=== PATIENT | female | born 1965 | race Caucasian/White ===

== ENCOUNTER → 2017-03-22 | Outpatient (CLI) | payer BC, OTHER ==
[2014-09-29 17:04] VITALS: BP 137/78
--- NOTE | 2017-03-23 09:54 | RAD ---
DATE: 03/22/2017 EXAM: MAMMO EDMUNDO SCREENING BILATERAL HISTORY: Screening COMPARISON: None. This is a baseline exam FINDINGS: Breast Density: FATTY The Breast Parenchyma is primarily fatty replaced. Breast parenchyma level density A.. Left breast is unremarkable. There is a small well-defined nodule in the subareolar position of the right breast. Targeted ultrasound is advised. IMPRESSION: Well-defined nodule subareolar position right breast. Targeted ultrasound advised BI-RADS CATEGORY: 0 INCOMPLETE: NEED ADDITIONAL IMAGING EVAULATION AND/OR PRIOR MAMMOGRAMS FOR COMPARISON RECOMMENDED FOLLOW-UP: ADD ADDITIONAL IMAGING PQRS compliance statement: Patient information was entered into a reminder system with a target due date soon for the next mammogram. Mammography is a sensitive method for finding small breast cancers, but it does not detect them all and is not a substitute for careful clinical examination. A negative mammogram does not negate a clinically suspicious finding and should not result in delay in biopsying a clinically suspicious abnormality. "Our facility is accredited by the [employer] Mammography Program."
== END | disposition home or self-care (01) ==
LOC: KCIC MAMMO 16:25
PROVIDERS: ATTEND Nurse Practitioner Family
DX: Z12.31 Encounter for screening mammogram for malignant neoplasm of breast (principal); N63 Unspecified lump in breast
CPT/HCPCS: 77063; G0202; 77067

== ENCOUNTER → 2017-03-29 | Outpatient (CLI) | payer BC ==
[2014-09-29 17:04] VITALS: BP 137/78
--- NOTE | 2017-03-29 16:01 | RAD ---
Right breast ultrasound, 03/29/2017: History: Suspicious screening study The screening study demonstrated a small, smooth nodule at the 12:00 retroareolar level. A targeted ultrasound exam of that region demonstrates a smooth oval-shaped nodule, which appears to correspond in location to the mammographic abnormality. It is hypoechoic with mildly heterogeneous internal echoes. It is wider than tall. It is discoid shaped measuring approximately 9 x 4 x 11 mm. There is no posterior acoustic enhancement or shadowing. It has a benign appearance and may be a small fibroadenoma. No other sonographic abnormality was seen in this region. IMPRESSION: Benign-appearing retroareolar nodule as described above. Sonographic and mammographic follow-up beginning in 6 months is suggested to establish stability. BI-RADS 3-probably benign findings
== END | disposition home or self-care (01) ==
LOC: KCIC US 15:14
PROVIDERS: ATTEND Nurse Practitioner Family
DX: N63 Unspecified lump in breast (principal)
CPT/HCPCS: 76641

== ENCOUNTER → 2018-01-22 | Outpatient (CLI) | payer OTHER, BC | END | disposition home or self-care (01) | LOC: KCIC MAMMO 13:12 | DX: N63.10 Unspecified lump in the right breast, unspecified quadrant (principal) | CPT/HCPCS: 76641; 77066; G0279 ==